=== PATIENT | female | born 1985 | race Caucasian/White ===

== ENCOUNTER 2017-12-27 16:28 | Emergency (ER) | payer BC ==
[2017-12-27 16:50] VITALS: BP 121/62
--- NOTE | 2017-12-27 17:18 | ED ---
Skin Complaint - HPI Summary HPI Summary: 32 yr old female with patch of itching, redness to the right inguinal area. Onset 10 days ago. This is a recurrent rash that has happened at least two other times this past year, and has resolved with hydrocortisone cream application. She states she is itching all over her body as well. She has another small patch of redness over right clavicle as well. No fever or chills. She does not feel ill. She has no lip or tongue swelling, no SOB. 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 Her PMD is in [place] she recently relocated here. - History of Current Complaint Chief Complaint: UCSkin Time Seen by Provider: 12/27/17 16:54 Stated Complaint: SKIN CONCERN Hx Last Menstrual Period: 11/26/17 Pain Intensity: 0 - Allergy/Home Medications Allergies/Adverse Reactions: Allergies Allergy/AdvReac Type Severity Reaction Status Date / Time amoxicillin Allergy Hives Verified 12/27/17 16:51 Penicillins Allergy Hives Verified 12/27/17 16:51 sulfamethoxazole Allergy Hives Verified 12/27/17 16:51 [From ] trimethoprim [From ] Allergy Hives Verified 12/27/17 16:51 Home Medications: Home Medications Fluticasone NASAL SPRAY 50MCG* [Flonase NASAL SPRAY 50MCG*] 2 spray BOTH NARES DAILY 12/27/17 [History Confirmed 12/27/17] Loratadine [Claritin] 10 mg PO DAILY 12/27/17 [History Confirmed 12/27/17] PMH/Surg Hx/FS Hx/Imm Hx - Surgical History Surgery Procedure, Year, and Place: right leg for soft tissue sarcoma Infectious Disease History: No Infectious Disease History: Denies: Traveled Outside the [place] in Last 30 Days - Family History Known Family History: Positive: None - Social History Occupation: Employed Full-time Alcohol Use: Occasionally Substance Use Type: Reports: None Smoking Status (MU): Never Smoked Tobacco Review of Systems Constitutional: Negative Positive: Rash All Other Systems Reviewed And Are Negative: Yes Physical Exam Triage Information Reviewed: Yes Vital Signs On Initial Exam: Initial Vitals Temp Pulse Resp BP Pulse Ox 99.1 F 51 16 121/62 99 12/27/17 16:45 12/27/17 16:45 12/27/17 16:45 12/27/17 16:45 12/27/17 16:45 Vital Signs Reviewed: Yes Appearance: Positive: Well-Appearing, No Pain Distress Skin: Positive: Warm, Other - right lateral inguinal area with raised rash that is lichenified, and palpable. No mass or cellulitis. This does not appear infected. There is also a patch of redness, and lichen appearance to the right clavicle as well. Head/Face: Positive: Normal Head/Face Inspection Eyes: Positive: EOMI ENT: Positive: Normal ENT inspection. Negative: Pharyngeal erythema Neck: Positive: Nontender, No Lymphadenopathy Respiratory/Lung Sounds: Positive: Clear to Auscultation, Breath Sounds Present Cardiovascular: Positive: RRR. Negative: Murmur Abdomen Description: Positive: Nontender Musculoskeletal: Positive: Strength/ROM Intact, Other - right leg with scar well healed medial right calf without any swelling or active issue.. Negative: Edema Left, Edema Right Neurological: Positive: Sensory/Motor Intact, Alert, Oriented to Person Place, Time, CN Intact II-III Psychiatric: Positive: Normal - [place] Coma Scale Best Eye Response: 4 - Spontaneous Best Motor Response: 6 - Obeys Commands Best Verbal Response: 5 - Oriented Coma Scale Total: 15 Diagnostics - Vital Signs Vital Signs Temp Pulse Resp BP Pulse Ox 12/27/17 16:45 99.1 F 51 16 121/62 99 - Laboratory Lab Statement: Any lab studies that have been ordered have been reviewed, and results considered in the medical decision making process. Course/Dx - Course Course Of Treatment: 32 yr old with dermatitis. She has responded to topical steroids the past times this year, but not getting much better this time. Will put her on medrol dose kerri. I recommend she establish primary care here. - Diagnoses Provider Diagnoses: Dermatitis Discharge - Sign-Out/Discharge Documenting (check all that apply): Patient Departure All imaging exams completed and their final reports reviewed: No Studies - Discharge Plan Condition: Good Disposition: HOME Prescriptions: methylPREDNISolone [Medrol Dosepak 4 MG*] 4 mg PO .SEE KERRI INSTRUCTION #1 kerri Patient Education Materials: Dermatitis (ED) Referrals: [facility] [place] PHYSICIAN REFERRAL [Outside] - 2 Days No Primary Care Phys,NOPCP [Primary Care Provider] - - Billing Disposition and Condition Condition: GOOD Disposition: Home
== END 2017-12-27 17:18 | disposition home or self-care (01) ==
LOC: UCCORT 16:28
DX: L30.9 Dermatitis, unspecified (principal); Z88.0 Allergy status to penicillin; Z88.1 Allergy status to other antibiotic agents
CPT/HCPCS: 99202; G0463

== ENCOUNTER 2018-03-14 21:06 | Emergency (ER) | payer BC ==
--- OUTSIDE RECORDS SUMMARY | 2018-03-14 21:27 | XMS REPORT | Continuity of Care Document ---
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 [employer] Unavailable Maxine Carmichael MD, PHD Primary Care Physician Unavailable Payers Type Date Identification Numbers Payment Provider Subscriber Policy Number: [id number] [facility] Cyndy Hagen PayID: [id number] [address] [address] [place] [address] Advance Directives Description No Information Available Problems Date Description Provider Status Onset: 01/12/2018 H/O: malignant neoplasm Maxine Carmichael MD, PHD Active Onset: 01/12/2018 History of malignant neoplasm of Maxine Carmichael MD, PHD Active skin Onset: 01/12/2018 Eruption Maxine Carmichael MD, PHD Active Onset: 01/12/2018 Idiopathic urticaria Maxine Carmichael MD, PHD Active Family History Date Family Member(s) Problem(s) Comments Father Skin Cancer Mother Arthritis Paternal Grandfather Diabetes Paternal Grandfather Alzheimer's Disease Paternal Grandmother Skin Cancer Maternal Grandfather due to Alcoholic Cirrhosis () Maternal Grandmother Dementia Maternal Grandmother Age Related Macular Degeneration Social History Type Date Description Comments Sex Unknown Marital Status Single Lives With Boyfriend Diet Patient follows no dietary restrictions 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 Working Tobacco Use Start: Unknown Never Smoked Cigarettes Smoking Status Reviewed: 03/03/18 Never Smoked Cigarettes ETOH Use Currently consumes alcohol socially Tobacco Use Start: Unknown Patient denies history of smoking Allergies, Adverse Reactions, Alerts Date Description Reaction Status Severity Comments 01/12/2018 Penicillin Active 01/12/2018 Amoxicillin Active 01/12/2018 Sulfamethoxazole / Trimethoprim Active Medications Medication Date Status Form Strength Qnty SIG Indications Ordering Provider D3 Maximum Active Capsules 5000Unit 90caps 1 cap by E55.9 Amol, Victorino 018 mouth angelika Goodman MD, PHD day with food Flonase Active Suspension 50mcg/Act 1 spray Unknown Allergy 000 each Relief nare every day Claritin Active Capsules 10mg 1 by Unknown 000 mouth every day Immunizations Description No Information Available Vital Signs Date Vital Result Comment 03/03/2018 8:35am BP Systolic 109 mmHg BP Diastolic 60 mmHg Body Temperature 9.8 F Heart Rate 52 /min Respiratory Rate 16 /min Height 75 inches 6'3" Weight 167.00 lb BMI (Body Mass Index) 20.9 kg/m2 BSA (Body Surface Area) 2.03 m2 Carpenter body weight in kilograms 79 kg O2 % BldC Oximetry 99 % 01/12/2018 9:12am BP Systolic 122 mmHg BP Diastolic 63 mmHg Body Temperature 97.6 F Heart Rate 90 /min Respiratory Rate 18 /min Height 75 inches 6'3" Weight 167.00 lb BMI (Body Mass Index) 20.9 kg/m2 BSA (Body Surface Area) 2.03 m2 Carpenter body weight in kilograms 79 kg O2 % BldC Oximetry 96 % Results Description No Information Available Procedures Description No Information Available Encounters Type Date Location Provider Dx Diagnosis Office Visit 01/12/2018 Family Medicine Maxine Carmichael, L50.1 Idiopathic 9:00a Charan Flores MD, PHD urticaria R21 Rash and other nonspecific skin eruption Z85.828 Personal history of other malignant neoplasm of skin Z85.831 Personal history of malignant neoplasm of soft tissue Plan of Treatment 03/03/2018 - Maxine Carmichael MD, PHDE55.9 Vitamin D deficiency, unspecifiedNew Medication:D3 Maximum Strength 5000 Unit - 1 cap by mouth every day with foodNew Labs:Vitamin D,25-Hydroxy, Ordered: 03/03/18Z01.419 Encounter for gynecological examination (general) (routine)New Labs:Cytopathology Cervix/ Vagina, Ordered: 03/03/18HPV High Risk, Ordered: 03/03/18Genital Culture W/ Gram Stain, Ordered: 03/03/18Chlmaydia/GC/Trichomonas PCR, Ordered: Comments:Please consider the choices we discussed for control and let me know what you decide.Follow up:Follow up for test results, as needed, or in 1 year.Recommendations:https://www.[email or web address].[email or web address] Encounter for screening for infections with a predominantlyNew Labs:Treponema Antibody Solon, Ordered: 03/03/18Z13.220 Encounter for screening for lipoid disordersNew Labs:LDL Cholesterol Profile, Ordered: 03/03/18R53.83 Other fatigueNew Labs:Thyroid Stim Hormone, Ordered: 03/03/18Cytopathology Cervix/ Vagina, Ordered: 03/03/18HPV High Risk, Ordered: 03/03/18Treponema Antibody Solon, Ordered: 03/03/18Genital Culture W/ Gram Stain, Ordered: Chlmaydia/GC/Trichomonas PCR, Ordered: 03/03/18
[2018-03-14] MEDS ORDERED: Metoprolol Tartrate TAB* 25 MG PO ONE (21:50)
--- NOTE | 2018-03-14 22:00 | ED ---
Palpitations / Dysrhythmia - HPI Summary HPI Summary: Pt is a 32 y/o female who presents to the ED c/o palpitations. Today she began to feel pauses in her heart beat, and feels fatigued. She denies any CP, SOB, near-syncope, weight gain/loss, or overheating. Pt denies any sleep deprivation or alcohol use, but notes that she had 1 cup of coffee this morning after consuming less caffeine lately. She denies any hx of thyroid issues or cardiac disease. Pt notes that she occasionally has felt a flutter in the past, but not persistent. - History of Current Complaint Chief Complaint: EDDysrhythmPalp Time Seen by Provider: 03/14/18 21:39 Hx Obtained From: Patient Onset/Duration: Gradual Onset, Lasting Hours - This morning, Still Present Timing: Intermittent Episodes Lasting: Character: Irregular Aggravating: Caffeine Alleviating: Nothing Associated Signs & Symptoms: Negative - Allergy/Home Medications Allergies/Adverse Reactions: Allergies Allergy/AdvReac Type Severity Reaction Status Date / Time amoxicillin Allergy Hives Verified 03/14/18 21:16 Penicillins Allergy Hives Verified 03/14/18 21:16 sulfamethoxazole Allergy Hives Verified 03/14/18 21:16 [From ] trimethoprim [From ] Allergy Hives Verified 03/14/18 21:16 Home Medications: Home Medications NK [No Home Medications Reported] 03/14/18 [History Confirmed 03/14/18] PMH/Surg Hx/FS Hx/Imm Hx Endocrine/Hematology History: Denies: Hx Diabetes Cardiovascular History: Denies: Hx Hypertension - Surgical History Surgery Procedure, Year, and Place: right leg for soft tissue sarcoma Infectious Disease History: No Infectious Disease History: Denies: Traveled Outside the [place] in Last 30 Days - Family History Known Family History: Negative: Cardiac Disease - Social History Alcohol Use: Occasionally Hx Substance Use: No Substance Use Type: Reports: None Hx Tobacco Use: No Smoking Status (MU): Never Smoked Tobacco Review of Systems Positive: Fatigue. Negative: Other - weight gain/loss, overheated Positive: Palpitations. Negative: Chest Pain Negative: Shortness Of Breath Negative: Syncope All Other Systems Reviewed And Are Negative: Yes Physical Exam - Summary Physical Exam Summary: Appearance: Well appearing, no pain distress Skin: warm, dry, reflects adequate perfusion Head/face: normal Eyes: EOMI, DASHAWN ENT: mucous membranes moist Neck: supple, non-tender Respiratory: CTA, breath sounds present Cardiovascular: occasional irregularity to heartbeat, pulses symmetrical Abdomen: non-tender, soft Bowel Sounds: present Musculoskeletal: normal, strength/ROM intact Neuro: normal, sensory motor intact, A&Ox3 Triage Information Reviewed: Yes Vital Signs On Initial Exam: Initial Vitals Temp Pulse Resp BP Pulse Ox 98.7 F 59 16 131/74 98 03/14/18 21:13 03/14/18 21:13 03/14/18 21:13 03/14/18 21:13 03/14/18 21:13 Vital Signs Reviewed: Yes Diagnostics - Vital Signs Vital Signs Temp Pulse Resp BP Pulse Ox 03/14/18 21:38 56 97 03/14/18 21:37 54 111/72 97 03/14/18 21:13 98.7 F 59 16 131/74 98 - Laboratory Lab Statement: Any lab studies that have been ordered have been reviewed, and results considered in the medical decision making process. - EKG 21:30 Cardiac Rate: NL - 60 bpm EKG Rhythm: Sinus Rhythm ST Segment: Normal Ectopy: PVCs Summary of EKG Findings: Nl axis, nl intervals Course/Dx - Course Course Of Treatment: Nurse's notes reviewed. Patient recently had blood work outpatient and pending thyroid study results. She has a PVC every approximate 30-50 beats. PVC confirmed on EKG. No chest pain, shortness of breath. Resting heart rate of 55-60. 12.5 mg of metoprolol orally 1. Follow-up closely primary care physician. No known exacerbating cause. - Diagnoses Differential Diagnosis/HQI/PQRI: Positive: Other - PVC, PAC, atrial fibrillation , anxiety, hyperthyroid, hypothyroid Provider Diagnoses: PVCs (premature ventricular contractions) Discharge - Sign-Out/Discharge Documenting (check all that apply): Patient Departure - Discharge - Discharge Plan Condition: Improved Disposition: HOME Patient Education Materials: Premature Ventricular Contractions (ED) Referrals: Maxine Carmichael MD [Primary Care Provider] - Additional Instructions: Call your doctor on March 16 to schedule prompt follow-up. Have them check your thyroid function results. Avoid alcohol, get plenty of sleep, avoid caffeine. Return if worse, lightheadedness, passing out, new symptoms or other concerns as discussed. - Billing Disposition and Condition Condition: IMPROVED Disposition: Home - Attestation Statements Document Initiated by Yaneliibe: Yes Documenting Scribe: Erin Padilla Provider For Whom Jennifer is Documenting (Include Credential): Jay Dash MD Scribe Attestation: Erin Marie, scribed for Jay Dash MD on 03/14/18 at 2300. Scribe Documentation Reviewed: Yes Provider Attestation: The documentation as recorded by the Erin hickey accurately reflects the service I personally performed and the decisions made by Jay alejandro MD Status of Scribe Document: Viewed
[2018-03-14 22:09] VITALS: BP 114/73
== END 2018-03-14 22:18 | disposition home or self-care (01) ==
LOC: ED 21:06
DX: I49.3 Ventricular premature depolarization (principal); Z88.1 Allergy status to other antibiotic agents; Z88.0 Allergy status to penicillin; Z88.2 Allergy status to sulfonamides
CPT/HCPCS: 93005; 99282

== ENCOUNTER 2021-02-18 18:15 | Observation (INO) ==
[2021-02-18 20:43] LABS: ABS Lymphocytes 0.9 10^3/ul (1.0-4.8); ABS Monocytes 0.9 10^3/ul (0-0.8); ABS Neutrophils 7.7 10^3/ul (1.5-7.7); Eosinophil % 0.3 %; Hematocrit 36 % (35-47); Hemoglobin 12.5 g/dL (12.0-16.0); Lymphocyte % 9.4 %; Mean Corpuscular HGB Conc 34 g/dL (31-36); Mean Corpuscular Hemoglobin 30 pg (27-31); Mean Corpuscular Volume 88 fL (80-97); Mean Platelet Volume 10.7 fL (7.4-10.4); Platelet Count 158 10^3/uL (150-450); Red Blood Count 4.15 10^6 /uL (3.70-4.87); Red Cell Distribution Width 12 % (10-15); White Blood Count 9.6 10^3/uL (3.5-10.8)
[2021-02-18] MEDS ORDERED: Lactated Ringers 1000 ml BAG 1,000 ML IV ONE (20:53)
[2021-02-18 21:00] LABS: Urine Appearance Cloudy; Urine Bilirubin Negative (Negative); Urine Blood 2+ (Negative); Urine Color Yellow; Urine Glucose Negative (Negative); Urine Ketones 1+ (Negative); Urine Nitrite Negative (Negative); Urine Protein Negative (Negative); Urine Specific Gravity 1.012 (1.002-1.030); Urine Urobilinogen Negative (Negative)
[2021-02-18 21:01] LABS: Albumin 4.3 g/dL (3.2-5.2); Albumin/Globulin Ratio 1.4 (1-3); C Reactive Protein 26.5 mg/L (<8.01); Calcium 9.4 mg/dL (8.6-10.3); Potassium 3.6 mmol/L (3.5-5.0); Total Bilirubin 0.7 mg/dL (0.2-1.0); Total Protein 7.3 g/dL (6.4-8.9); eGFR CKD-EPI 122.7 (>60)
[2021-02-18 21:06] LABS: HCG Pregnancy 6.87 mIU/mL
[2021-02-18 21:09] LABS: Urine Bacteria 2+ (Absent); Urine Red Blood Cell 1+(3-5/hpf) (Absent); Urine Squamous Epithelial Cell Present (Absent); Urine White Blood Cell Trace(0-5/hpf) (Absent)
[2021-02-18] MEDS ORDERED: Iohexol 300 (CONTRAST) 10 ML SDV IV ONE (21:24)
[2021-02-18] MEDS ORDERED: ceFOXitin 1 GM in NS 0.9% 50 ML 50 ML IVPB ONE (23:02)
[2021-02-18] MEDS ORDERED: NS 0.9% 50 ML 0 ML ONE (23:05)
[2021-02-18 23:35] LABS: Rapid COVID-19 Molecular Undetected (Undetected)
[2021-02-19] MEDS ORDERED: Meropenem 1 GM PREMIX(*) 1 GM/50 ML BAG IV ONE (00:20)
[2021-02-19] MEDS: D5W 1/2 NS KCl 20 meq 1000 ml 1,000 ML IV SCH ×2 (03:00→17:40)
[2021-02-19] MEDS ORDERED: Acetaminophen IV 1 GM/100ML 100 ML IV ONE ×4 (06:20→12:57)
[2021-02-19] MEDS: HYDROmorphone 0.5 MG/0.5 ML SYRINGE IV SLOW PU PRN (07:41)
[2021-02-19 07:48] LABS: ABS Eosinophils 0.1 10^3/ul (0-0.6); ABS Lymphocytes 0.8 10^3/ul (1.0-4.8); ABS Monocytes 1.3 10^3/ul (0-0.8); ABS Neutrophils 6.6 10^3/ul (1.5-7.7); Eosinophil % 0.6 %; Hematocrit 36 % (35-47); Hemoglobin 12.4 g/dL (12.0-16.0); Lymphocyte % 8.9 %; Mean Corpuscular HGB Conc 34 g/dL (31-36); Mean Corpuscular Hemoglobin 30 pg (27-31); Mean Corpuscular Volume 88 fL (80-97); Platelet Count 149 10^3/uL (150-450); Red Cell Distribution Width 12 % (10-15); White Blood Count 8.7 10^3/uL (3.5-10.8)
[2021-02-19] MEDS ORDERED: Rocuronium 50 mg VIAL 10 mg/ml 5 ml VIAL (50 mg) ONE (10:43)
[2021-02-19] MEDS ORDERED: Lidocaine 2% PF 5 ML VIAL ONE (10:44)
[2021-02-19] MEDS ORDERED: Midazolam 2 mg/2 ml VIAL 1 mg/ml 2 ml VIAL (2 mg) ONE (10:44)
[2021-02-19] MEDS ORDERED: fentaNYL 100 mcg/2 ml 50 MCG/ML VIAL ONE ×2 (10:44→13:02)
[2021-02-19] MEDS ORDERED: Propofol 10 MG/ML 20 ML BTL ONE (10:45)
[2021-02-19] MEDS ORDERED: Dexamethasone IV 4 MG/ML VIAL 1 ml VIAL ONE (10:47)
[2021-02-19] MEDS ORDERED: Bupivacaine 0.25% SDV PF 10 ML VIAL INJ ONE (11:20)
[2021-02-19] MEDS ORDERED: Lidocaine 1% w EPI 1:100,000 MDV 20 ML VIAL ONE (11:20)
[2021-02-19] MEDS ORDERED: Meropenem 1 GM PREMIX 1 GM/50 ML BAG IV ONE (12:00)
[2021-02-19] MEDS ORDERED: Naloxone 0.4 mg VIAL 0.4 mg/ml 1 ml VIAL IV PRN (14:58)
[2021-02-19] MEDS ORDERED: fentaNYL 100 mcg/2 ml 50 MCG/ML VIAL IV PRN (14:58)
[2021-02-19] MEDS ORDERED: Ondansetron 4 mg VIAL 2 MG/ML 2 ml VIAL IV PRN (14:58)
[2021-02-19] MEDS ORDERED: HYDROmorphone 0.5 MG/0.5 ML SYRINGE IV PRN (15:04)
[2021-02-19] MEDS: Meropenem 1 GM PREMIX 1 GM/50 ML BAG IV SCH (20:43)
[2021-02-20] MEDS: Meropenem 1 GM PREMIX 1 GM/50 ML BAG IV SCH ×3 (04:42→20:12)
[2021-02-20] MEDS: D5W 1/2 NS KCl 20 meq 1000 ml 1,000 ML IV SCH (05:56)
[2021-02-20 06:56] LABS: Hematocrit 33 % (35-47); Hemoglobin 11.1 g/dL (12.0-16.0); Mean Corpuscular HGB Conc 34 g/dL (31-36); Mean Corpuscular Hemoglobin 30 pg (27-31); Mean Corpuscular Volume 88 fL (80-97); Mean Platelet Volume 11.4 fL (7.4-10.4); Platelet Count 142 10^3/uL (150-450); Red Blood Count 3.73 10^6 /uL (3.70-4.87); Red Cell Distribution Width 12 % (10-15); White Blood Count 12.6 10^3/uL (3.5-10.8)
[2021-02-20] MEDS: HYDROmorphone 0.5 MG/0.5 ML SYRINGE IV SLOW PU PRN (18:50)
[2021-02-21] MEDS: Meropenem 1 GM PREMIX 1 GM/50 ML BAG IV SCH (04:37)
[2021-02-21] MEDS ORDERED: Ondansetron 4 mg VIAL 2 MG/ML 2 ml VIAL IV PRN (08:06)
[2021-02-21] MEDS ORDERED: Ondansetron 4 mg VIAL 2 MG/ML 2 ml VIAL ONE (08:07)
[2021-02-21 11:33] VITALS: BP 116/68
== END 2021-02-21 12:45 | disposition home or self-care (01) ==
LOC: ED 18:15 → SSU 18:15
PROVIDERS: ADMIT Surgery; ATTEND Surgery

== ENCOUNTER 2022-01-28 04:43 | Inpatient (IN) ==
[2022-01-28] MEDS ORDERED: Lactated Ringers 1000 ml BAG 1,000 ML IV ONE (06:02)
[2022-01-28] MEDS ORDERED: Buffered Lidocaine 1% SYRIN 1 ml INTRADERM ONE (06:02)
[2022-01-28 07:06] LABS: Urine Benzodiazepine Screen None Detected (None Detect); Urine Cannabinoids Screen None Detected (None Detect); Urine Opiates Screen None Detected (None Detect)
[2022-01-28] MEDS ORDERED: miSOPROStol 100 mcg TAB PO ONE (11:13)
[2022-01-28] MEDS ORDERED: Vancomycin 2,000 MG in NS 0.9% 250 ml 250 ML IVPB ONE (16:07)
[2022-01-28 16:58] LABS: ABS Eosinophils 0.1 10^3/ul (0-0.6); ABS Lymphocytes 1.3 10^3/ul (1.0-4.8); ABS Monocytes 0.8 10^3/ul (0-0.8); ABS Neutrophils 7.4 10^3/ul (1.5-7.7); Eosinophil % 0.7 %; Hematocrit 38 % (35-47); Hemoglobin 12.4 g/dL (12.0-16.0); Lymphocyte % 13.1 %; Mean Corpuscular HGB Conc 33 g/dL (31-36); Mean Corpuscular Hemoglobin 29 pg (27-31); Mean Corpuscular Volume 89 fL (80-97); Mean Platelet Volume 11.8 fL (7.4-10.4); Platelet Count 121 10^3/uL (150-450); Red Blood Count 4.21 10^6 /uL (3.70-4.87); Red Cell Distribution Width 13 % (10-15); White Blood Count 9.6 10^3/uL (3.5-10.8)
[2022-01-28] MEDS ORDERED: Vancomycin 2,000 MG in NS 0.9% 500 ml BAG 500 ML IVPB ONE (17:00)
[2022-01-28] MEDS: Lactated Ringers 1000 ml BAG 1,000 ML IV SCH (17:02)
[2022-01-28] MEDS ORDERED: Oxytocin in LR 20,000 MILLI.UNIT/1,000 ML BAG IV SCH (21:00)
[2022-01-29] MEDS: Lactated Ringers 1000 ml BAG 1,000 ML IV SCH ×2 (01:05)
[2022-01-29] MEDS: Vancomycin 1,000 MG in NS 0.9% 250 ml 250 ML IVPB SCH ×2 (05:08→19:36)
[2022-01-29] MEDS ORDERED: Witch Hazel PAD JAR TOPICAL PRN (08:50)
[2022-01-29] MEDS ORDERED: Glycerin ADULT 2.4 gm SUPP PR PRN (08:50)
[2022-01-29] MEDS ORDERED: Oxytocin in LR 20,000 MILLI.UNIT/1,000 ML BAG IV SCH (09:00)
[2022-01-29] MEDS ORDERED: Lactated Ringers 1000 ml BAG 1,000 ML IV SCH (09:00)
[2022-01-29] MEDS: Dibucaine 1% OINT 28.35 GM TUBE PR PRN (14:45)
[2022-01-29] MEDS: Witch Hazel PAD JAR TOPICAL SCH ×2 (14:45→19:35)
[2022-01-30] MEDS: Vancomycin 1,000 MG in NS 0.9% 250 ml 250 ML IVPB SCH (03:35)
[2022-01-30 07:24] LABS: ABS Eosinophils 0.1 10^3/ul (0-0.6); ABS Lymphocytes 1.6 10^3/ul (1.0-4.8); ABS Monocytes 0.8 10^3/ul (0-0.8); Eosinophil % 0.5 %; Hematocrit 27 % (35-47); Lymphocyte % 12.9 %; Mean Corpuscular HGB Conc 33 g/dL (31-36); Mean Corpuscular Hemoglobin 30 pg (27-31); Mean Corpuscular Volume 90 fL (80-97); Mean Platelet Volume 11.4 fL (7.4-10.4); Platelet Count 102 10^3/uL (150-450); Red Cell Distribution Width 13 % (10-15); White Blood Count 12.5 10^3/uL (3.5-10.8)
[2022-01-31] MEDS: Dibucaine 1% OINT 28.35 GM TUBE PR PRN (02:23)
[2022-01-31 12:20] VITALS: BP 117/74
== END 2022-01-31 13:00 | disposition home or self-care (01) | DRG 560 ==
LOC: MCHOBOUT 04:43 → MCHOB 05:24
PROVIDERS: ADMIT Registered Nurse; ATTEND Registered Nurse